=== PATIENT | male | born 1985 | race Caucasian/White ===

== ENCOUNTER 2019-12-16 21:01 | Emergency (ER) | payer MEDICAID, SELFPAY ==
[~2019-12-16] VITALS: Ht 170.2 cm; Wt 72.6 kg
[2019-12-16 21:02] VITALS: BP 120/66; Ht 170.2 cm; Wt 72.6 kg
== END 2019-12-16 21:43 | disposition home or self-care (01) ==
LOC: ED 21:01
DX: U07.1 COVID-19 (principal)
CPT/HCPCS: U0003-CS